=== PATIENT | female | born 1975 | race Caucasian/White ===

== ENCOUNTER 2020-01-27 10:03 | Emergency (ER) | payer BC, SELFPAY ==
--- NOTE | ~2020-01-27 | CT_ITS ---
EXAMINATION: CT abdomen pelvis w con INDICATION: Right-sided abdominal pain TECHNIQUE: Computed tomographic images of the abdomen and pelvis were obtained after the administrati on of 100 cc of Omnipaque 350 intravenous contrast. The dose-length product (DLP) was 756.72 mGy-cm. Automated exposure control and iterative reconstruction technique were employed. COMPARISON: None available FINDINGS: Minimal dependent atelectasis is present in the lung bases. The heart size is normal. There is mild gallbladder distention. The common bile duct measures up to 9 mm, etiology unclear. A 1.2 cm hypoattenuating lesion is seen in the left hepatic lobe, likely cyst or hemangioma. The spleen, panc reas, and right adrenal gland are normal. There is a 1.6 cm mass of the left adrenal gland. The kidne ys are unremarkable. The appendix is normal. No pathologically enlarged abdominal or pelvic lymph nod es are identified. There is no free intraperitoneal gas or evidence of bowel obstruction. IMPRESSION: 1. Mild gallbladder distention and mild enlargement of the common bile duct of unclear etiology. Cons ider right upper quadrant ultrasound. 2. 1.6 cm mass of the left adrenal gland, likely adenoma in the absence of known malignancy. Consider follow-up adrenal CT in 12 months. Reviewed, dictated and finalized at location B. IMPRESSION: 1. Mild gallbladder distention and mild enlargement of the common bile duct of unclear etiology. Consider right upper quadrant ultrasound. 2. 1.6 cm mass of the left adrenal gland, likely adenoma in the absence of know n malignancy. Consider follow-up adrenal CT in 12 months.
--- NOTE | ~2020-01-27 | US_ITS ---
EXAMINATION: US right upper quadrant EXAM DATE: 01/27/2020 12:08 INDICATION: Right upper quadrant pain. TECHNIQUE: Multiple grayscale and Doppler images of the abdomen right upper quadrant were obtained (b y a technologist who performed the scan) and subsequently reviewed. Correlation is made to CT abdomen 01/27/2020. FINDINGS: The pancreatic head and body are normal in appearance. The pancreatic tail is not visualized. The l iver has normal echogenicity and contour. Left liver lobe lesion measuring 1.4 x 1.2 x 1.7 cm which is homogeneously hyperechoic, most likely benign histology. There is no evidence of intrahepatic bili angel duct dilation. Portal venous flow was seen in the hepatopedal, normal direction and has normal D oppler waveform. No right-sided hydronephrosis. Common bile duct measures 6 mm, which is upper limits of normal. The gallbladder wall is normal in th ickness, with moderate amount of distention. No sonographic evidence of pericholecystic fluid. Ther e is cholelithiasis. Technologist performing exam reports patient did not demonstrate sonographic M urphy's sign. Please note that this sign is less reliable in patients who have received pain medicat ion. IMPRESSION: 1. Cholelithiasis. 2. Nonspecific small left liver lobe lesion, most likely benign histology such as adenoma or hemangi franklin. Reviewed, dictated and finalized at location A. IMPRESSION: 1. Cholelithiasis. 2. Nonspecific small left liver lobe lesion, most likely benign histology such as adenoma or hemangioma.
[2020-01-27 10:19] VITALS: BP 139/75; PULSE 76; RESP 17; TEMP 36.8; O2SAT 99
--- NOTE | 2020-01-27 10:20 | ED.ABDPAIN ---
HPI - Abdominal Pain General Chief Complaint: Abdominal Pain Stated Complaint: Abd pain Time Seen by Provider: 01/27/20 10:19 History of Present Illness HPI narrative: Patient presents from her primary care's office for evaluation of right-sided abdominal pain. Is been going on for months. Comes and goes. Currently is a 3 out of 10. Not associated with eating or bowel movements. No fever chills or sweats. No nausea vomiting or diarrhea. No blood in the stool. Previous abdominal surgery includes tubal ligation. Her PCP scheduled an ultrasound of the gallbladder. Patient has not eaten since 730 last night. She smokes cigarettes, does not drink alcohol, does not do drug. Is not employed outside the home. Surgeries include lipoma removal, and tubal ligation. She has not been sick otherwise. MD elicited complaint: abdominal pain Pertinent past history: other (None) Onset (ago): month(s) Pain Consistency: intermittent Location: other (Right sided frontal abdominal pain) Severity: mild Radiation: none Exacerbating factors: nothing Relieving factors: nothing Related Data Home Medications Medication Instructions Recorded Confirmed No Home Medications 01/26/20 01/26/20 Allergies Allergy/AdvReac Type Severity Reaction Status Date / Time sulfamethizole Allergy Unknown Unknown Verified 01/27/20 10:25 Review of Systems Review of Systems: Narrative: CONSTITUTIONAL: Denies fever, chills, or sweats. EYES: Denies visual changes, redness, or discharge. ENT: Denies rhinorrhea, congestion, sore throat, or otalgia. CARDIOVASCULAR: Denies chest pain, palpitations, or edema. RESPIRATORY: Denies cough or dyspnea. GASTROINTESTINAL: She has abdominal pain, but not nausea, vomiting, or diarrhea. GENITOURINARY: Denies dysuria or hematuria. SKIN: Denies rash or itching. MUSCULOSKELETAL: Denies back pain, joint pain, or myalgia. NEUROLOGIC: Denies headache, numbness, or weakness. All systems reviewed & are unremarkable except as noted in HPI and below PMFSH Past Medical History Medical History History of lipoma Surgical History Surgical History History of tubal ligation Status post excision of lipoma Social History Social History Smoking status: Current every day smoker Second hand tobacco smoke exposure: No Alcohol intake: never Gender identity (if verbalized by the patient): Female Exam Narrative: Exam Narrative: GENERAL: Well-appearing, well-nourished, and in no acute distress. HEAD: Normocephalic, atraumatic. EYES: PERRLA and EOMI. ENT: Nares clear, no rhinorrhea or epistaxis. Mucous membranes moist. NECK: Supple. CHEST: Clear to auscultation. No respiratory distress. HEART: Regular rate and rhythm. No murmur heard. Normal peripheral pulses. ABDOMEN: Soft, nontender, nondistended, normal active bowel sounds. EXTREMITIES: Normal range of motion. No edema. SKIN: Warm, dry, no rash. NEURO: No focal deficits. Alert and oriented x3. PSYCH: Normal mood and affect. Course Reevaluation(s) Reevaluation #1: Went in the room to tell the patient about her gallstones. She can follow-up with the GI specialist, and a general surgeon. I encouraged low-fat diet. Date: 01/27/20 Time: 12:49 Vital Signs Vital signs: Vital Signs Temperature 98.2 F 01/27/20 10:19 Pulse Rate 76 01/27/20 10:19 Respiratory Rate 17 01/27/20 10:19 Blood Pressure 139/75 01/27/20 10:19 Pulse Oximetry 99 01/27/20 10:19 Temperature 98.2 F 01/27/20 10:19 Pulse Rate 67 01/27/20 12:08 Respiratory Rate 18 01/27/20 12:08 Blood Pressure 155/101 H 01/27/20 12:08 Pulse Oximetry 100 01/27/20 12:08 MDM - Abdominal Pain Differential Diagnosis Differential diagnosis: Likely other (Duodenitis, colitis, gallstones, kidney stones) Medical Records Attestation: I rev
[2020-01-27 10:37] LABS: Basophils Absolute Auto 0.1 K/mm3 (0.0-0.1); Basophils Percent Auto 0.6 % (0.2-1.2); Eosinophils Absolute Auto 0.1 K/mm3 (0-0.3); Eosinophils Percent Auto 0.9 % (0-4.4); Hematocrit 33.8 % (37.0-47.0); Hemoglobin 10.2 g/dL (12.0-15.0); Immature Granulocyte Absolute 0.03 K/mm3 (0.00-0.031); Immature Granulocyte Percent A 0.3 % (0-0.5); Immature Platelet Fraction Pct 8.1 % (0.9-11.2); Lymphocytes Absolute Auto 1.92 K/mm3 (0.9-3.2); Lymphocytes Percent Auto 19.6 % (18.3-44.2); Mean Corpuscular HGB Conc 30.2 g/dl (32-36); Mean Corpuscular Hemoglobin 21.8 pg (26-34); Mean Corpuscular Volume 72.2 fl (80-100); Mean Platelet Volume 10.9 fl (7.4-10.4); Monocytes Absolute Auto 0.6 K/mm3 (0.1-0.6); Monocytes Percent Auto 5.6 % (2.6-8.5); Neutrophils Absolute Auto 7.2 K/mm3 (1.3-6.7); Platelet Count Result 215 k/mm3 (150-375); Red Blood Count 4.68 M/mm3 (4.2-5.4); Red Cell Distribution Width 18.5 % (11.5-14.5); White Blood Count 9.8 K/mm3 (4.5-10.0)
[2020-01-27 10:46] LABS: Alanine Aminotransferase 21 U/L (4-35); Albumin Level 4.5 g/dL (3.5-5.1); Alkaline Phosphatase 70 U/L (38-126); Anion Gap 14.2 mmol/L (7-16); Aspartate Amino Transferase 27 U/L (14-36); Bilirubin,Total 0.6 mg/dL (0.2-1.3); Blood Urea Nitrogen 10 mg/dL (7-17); Calcium 9.1 mg/dL (8.4-10.2); Carbon Dioxide 22 mmol/L (22-30); Chloride 103 mmol/L (98-107); Estimated CRCL calculation 102 ml/min; Estimated Glomerular Filt Rate > 60; Glucose 130 mg/dL (65-105); Lipase 147 U/L (23-300); Potassium 4.2 mmol/L (3.4-5.0); Sodium 135 mmol/L (137-145)
[2020-01-27 10:57] LABS: Estimated CRCL calculation 90 ml/min; Estimated Glomerular Filt Rate > 60
[2020-01-27 10:59] LABS: Add Urine Microscopic? YES; Appearance Urine Clear (Clear); Bacteria Urine Trace /hpf; Bilirubin Urine Negative (Negative); Blood Urine 1+ (Negative); Color Urine Straw (Yellow); Glucose Urine UA Negative (Negative); Ketones Urine Negative (Negative); Leukocyte Esterase Ur Trace LEU/UL (Negative); Mucus Urine Rare /lpf; Nitrate Urine Negative (Negative); Protein Urine Negative (Negative); RBC Urine 0-2 /hpf (0-2); Specific Grav Ur 1.008 (1.001-1.035); Squamous Epithelial Cell Urine Few /hpf (Few); Urobilinogen Urine Negative mg/dL (<2.0); WBC Urine 0-3 /hpf
--- NOTE | 2020-01-27 11:31 | PC.NURSE ---
Report given to BING Shabazz by this RN. Care assumed by Harika at this time.
--- NOTE | 2020-01-27 11:53 | PC.NURSE ---
Addendum entered by Judith Whitehead RN 01/27/20 11:58: Pt in [place] Original Note: Pt not in room.
[2020-01-27 12:08] VITALS: BP 155/101; PULSE 67; RESP 18; O2SAT 100
[2020-01-27 12:58] VITALS: BP 150/79; PULSE 81; RESP 16; O2SAT 100
== END 2020-01-27 12:59 | disposition home or self-care (01) ==
PROVIDERS: Emergency Provider Emergency Medicine; PCP Internal Medicine
DX: R10.9 Unspecified abdominal pain (principal); K80.20 Calculus of gallbladder without cholecystitis without obstruction; K76.9 Liver disease, unspecified; F17.210 Nicotine dependence, cigarettes, uncomplicated
CPT/HCPCS: 36415; 74177; 76705; 80053; 81001; 81025; 83690; 85025; 85055; 99284; Q9967

== ENCOUNTER 2020-01-29 00:05 | Outpatient (CLI) | payer BC, SELFPAY ==
[2020-01-29 20:43] LABS: SARS-CoV-2 RNA PCR Negative
== END 2020-01-29 00:06 | disposition home or self-care (01) ==
LOC: ANHCOVIDDT 00:06
PROVIDERS: PCP Internal Medicine; Visit Provider Surgery
DX: Z01.812 Encounter for preprocedural laboratory examination (principal); Z11.59 Encounter for screening for other viral diseases
CPT/HCPCS: 87635; C9803; U0003

== ENCOUNTER 2020-02-01 01:10 | Day surgery (SDC) | payer BC, SELFPAY ==
[2020-01-28 09:24] VITALS: BMI 35.7
[2020-02-01] VITALS (7 sets, daily range): BP systolic 104–147; BP diastolic 59–79; PULSE 65–70; RESP 13–16; TEMP 36.3–36.8; O2SAT 90–98; BMI 35.1
--- NOTE | 2020-02-01 06:52 | WPDANESEPPF ---
Anes - Initial Pre Proc Eval Procedure: Operation Date: 02/01/20 07:30 Proposed Procedures p Laparoscopic Cholecystectomy, Possible Intra Operative Cholangiograms, Possible Open - Dedrick Valdez MD Date/Time: 02/01/20 06:52 Surgeon: Dedrick Valdez MD Pre Op Diagnosis: chronic cholecystitis with cholelithiasis Patient Data Age: 44 Gender: F Height: 5 ft 5 in Weight: 97.52 kg Allergies Allergy/AdvReac Type Severity Reaction Status Date / Time sulfamethizole Allergy Unknown swelling, Verified 02/01/20 06:49 hives Home Medications Medication Instructions Recorded Confirmed Type hydrocodone 5 mg-acetaminophen 325 1 tablet PO Q6H PRN #10 tablet 01/28/20 02/01/20 Rx mg tablet Patient hx anesthesia problems: none Family hx anesthesia problems: none PMFSH Family History Family History Father Hypertension High cholesterol Mother High cholesterol Hypertension Social History Social History Smoking packs per day: 1 Smoking cigarettes per day: 20.0 Years smoked: 26 Smoking pack-years: 26.00 Smoking status: Current every day smoker Tobacco type: cigarettes Second hand tobacco smoke exposure: No Alcohol intake: never Substance use: never Gender identity (if verbalized by the patient): Female Spiritual care concerns: No Anes - Eval Final PreProcedure Day of Procedure 02/01/20 06:52 Patient weight: obese Heart: regular rate and rhythm Lungs: clear to auscultation Airway: Mallampati scale class II and other (edentulous) Neurological: alert and oriented Last oral intake: >/= 8 hours ASA classification: II Emergent: no Anesthetic plan: proceed Anesthesia type and monitoring: general ETT and standard monitoring Informed Consent: The patient's anesthetic plan and its attendant risks and benefits were discussed with the patient/family/POA. Questions were solicited and answers provided to the satisfaction of the patient/family/POA.
[2020-02-01] MEDS: LACTATED RINGERS 1,000 ML 30 ML IV CONT ×2 (07:00→09:40)
--- NOTE | 2020-02-01 07:22 | WPDHPUPDATE1 ---
History and Physical Update Update Date/Time: 02/01/20 07:22 History and Physical has been reviewed, including an updated exam of the patient. There are NO changes in the patient's condition. Risks, benefits, and alternatives have been discussed and questions answered. Patient agrees to proceed with procedure.
[2020-02-01] MEDS: ceFAZolin 2 GM/D5W 50 ML 2 GM/50 ML BAG IVPB (07:27)
[2020-02-01] MEDS: KETOROLAC 15 MG/ML VIAL (*BKC) IV PUSH (07:30)
[2020-02-01 07:39] LABS: Alanine Aminotransferase 16 U/L (4-35); Albumin Level 4.1 g/dL (3.5-5.1); Alkaline Phosphatase 64 U/L (38-126); Amylase 67 U/L (30-110); Aspartate Amino Transferase 24 U/L (14-36); Bilirubin,Total 0.4 mg/dL (0.2-1.3); Lipase 103 U/L (23-300)
[2020-02-01] MEDS: BUPIVACAINE/EPINEPHRINE 0.5% 10 ML VIAL 30 ML INFILTRATE (07:55)
--- NOTE | 2020-02-01 09:47 | P.OP_ITS ---
Procedure Note - Detailed Date of procedure: 02/01/20 Pre-op diagnosis: chronic cholecystitis with cholelithiasis Chronic Cholecystitis with Cholelithiasis Post-op diagnosis: same Procedure performed: Laparoscopic Cholecystectomy Description of procedure: Patient was seen preoperatively in the holding area and risks, benefits and alternatives confirmed. Patient was taken to the operating room and general anesthesia was induced. A time out was then preformed with the surgery team confirming patient and site of surgery. The abdomen was prepped and draped in the usual sterile fashion. Incision was made just below the umbilicus with an 11 blade knife. I placed 2 stay sutures of O- Vicryl on either side of the mid- line fascia beneath the umbilicus and was then able to slide in the Denis cannula through the fascial defect into the peritoneum. First under low flow and then under high flow the abdomen was insufflated with carbon dioxide never exceeding a pressure of 14. Three 5 mm trocars were then introduced under direct vision. The following trocars were introduced under direct vision: a 5 mm in the epigastrium and two 5 mm trocars along the right costal margin laterally in the subcostal area. There was significant omental adhesions to the underside of the gallbladder. These were taken down with blunt and sharp dissection using some Bovie cautery for hemostasis. We were able to dissect this completely away from the neck of the gallbladder. I then carefully used the L-shaped cautery and the [place] dissector to dissect out the triangle of Calot. I then was able to dissect out both the cystic duct and cystic artery and identify a window of safety. The gall bladder was grasped and the cystic duct and artery were dissected free and clipped with an 5 mm endo-clip chief engineer drilling and recovery. The cystic duct and artery were clipped with use of 2 clips on the patient's side 1 on the gallbladder side utilizing a 5 mm endoclip- chief engineer drilling and recovery. The cystic duct was then transected. The cystic artery was also transected at this point. The gall bladder was removed using electrocautery and then removed from the abdomen using a large 10 mm grasper via the umbilical incision. there were several medium-size and 1 large gallstone palpable within the gallbladder upon removal. It should be mentioned that there did appear to be on the surface of the midportion of the liver (probably on the liver in the left lobe) a surface purplish discolored lesion most likely hemangioma. This was mentioned and her CT scan at the time of her ER visit. The trocars were removed visualizing hemostasis and the remaining gas evacuated. The large trocar site at the umbilicus was closed with use of the 2 stay sutures of 0 Vicryl mentioned above and also a figure of 8 O-Vicryl suture. The 2 stay sutures mentioned above on either side of the fascia were also tied together to help approximate this midline fascia. Further local anesthetic was placed into each incision for postop pain control. The skin incisions were closed with subcuticular suture of 4-0 Monocryl. Surgical glue then was applied to all the incisions. Patient tolerated the procedure well was taken to the recovery room in good condition. Anesthesia: DENICE Surgeon: Dedrick Valdez MD Assessment Clinician: Verona SMART, OR first aid instructor Estimated blood loss (mL): 30 Drains: No Packing: No Pathology: yes (Gallbladder) Complications: No immediate complications Condition: stable Disposition: PACU
== END 2020-02-01 10:52 | disposition home or self-care (01) ==
PROVIDERS: PCP Internal Medicine; Visit Provider Surgery
PROC: 0FT44ZZ Resection of Gallbladder, Percutaneous Endoscopic Approach (ICD-10-PCS; CPT 47562; principal; 2020-02-01 07:30)
DX: K80.10 Calculus of gallbladder with chronic cholecystitis without obstruction (principal); F17.210 Nicotine dependence, cigarettes, uncomplicated; E66.9 Obesity, unspecified; Z68.35 Body mass index [BMI] 35.0-35.9, adult
CPT/HCPCS: 47562; 36415; 80076; 82150; 83690; 88304; J0690; J1100; J1885; J2250; J2405; J2704; J2710; J7120

== ENCOUNTER 2020-02-04 11:55 | Outpatient (CLI) | payer BC, SELFPAY ==
--- NOTE | ~2020-02-04 | US_ITS ---
EXAMINATION: US venous doppler [facility] DATE: 02/04/2020 12:38 INDICATION: Chest pain TECHNIQUE: He scale images without and with compression and Doppler images of the bilateral lower e xtremity veins were obtained. COMPARISON: None FINDINGS: The right common femoral vein, profunda femoral vein, femoral vein, popliteal vein, peroneal trunk, p osterior tibial veins, and greater saphenous vein are patent. The left common femoral vein, profunda femoral vein, femoral vein, popliteal vein, peroneal trunk, po sterior tibial veins, and greater saphenous vein are patent. IMPRESSION: 1. Patent bilateral lower extremity veins. No evidence of deep venous thrombosis. Reviewed, dictated and finalized at location A. IMPRESSION: 1. Patent bilateral lower extremity veins. No evidence of deep venous thrombosi s.
--- NOTE | ~2020-02-04 | XR_ITS ---
EXAMINATION: XR chest 2V DATE: 02/04/2020 12:15 INDICATION: Other abnormalities of breathing, upper back pain with inspiration TECHNIQUE: PA and lateral views of the chest are obtained. COMPARISON: 02/13/2019 FINDINGS: There is mild atelectasis of the lingula. There is no pleural effusion or pneumothorax. The cardiomediastinal silhouette is normal. There is mild thoracic spondylosis. IMPRESSION: 1. Mild atelectasis of the lingula. Reviewed, dictated and finalized at location A.
== END 2020-02-04 11:56 | disposition home or self-care (01) ==
LOC: ANHIMG 11:56
PROVIDERS: PCP Internal Medicine; Visit Provider Surgery
DX: R06.89 Other abnormalities of breathing (principal); M79.89 Other specified soft tissue disorders; J98.11 Atelectasis
CPT/HCPCS: 71046; 93970

== ENCOUNTER 2020-02-16 08:15 | Outpatient (CLI) | payer BC, SELFPAY ==
--- NOTE | 2020-02-16 08:46 | EST_ITS ---
Patient Info Name: Cecilia Herrera Age: 44 years : 1975 Gender: Female Ht: 65 in Wt: 210 lbs BSA: 2.13 m2 HR: 65 bpm BP: 138 / 73 mmHg Heart Rhythm: Sinus Arrhythmia Exam Date: 02/16/2020 9:55 AM Exam Location: [facility] Patient Status: Outpatient Admit Date: 02/16/2020 Staff Ordering Physician: Hui Urbina Front Desk Assistant: Aniya Goldstein RDCS Attending Provider: IRVING STRAUSS DO Referring Physician: Carlitos PARRA; Exercise Technologist: Maggie Sosa RDCS Exercise Physician: Irving Strauss DO Exam Type: CA stress echo Study Info Indications R00.0 - Tachycardia, unspecified Treadmill exercise stress echocardiogram is performed. Summary 1. 1. Negative Khai exercise stress test for ischemic ST changes by ECG criteria. 2. 2. Mild reduced functional capacity, achieving 7 METs of workload. 3. 3. Appropriate HR response to exercise. 4. 4. Appropriate HR recovery at 1 minute post exercise. 5. 5. Supraventricular beats at peak exercise. 6. 6. Hypertensive response to exercise. 7. 7. Negative stress echocardiogram for ischemia by wall motion analysis. 8. 8. Patient informed of the above results. Stress Echo Findings Left Ventricle Appropriate increase in LV endocardial thickening with systole. Appropriate augmentation of contractillity with systole. No wall motion abnormality. Left Ventricle Normal LV systolic function, no wall motion abnormality. Protocol: Khai Stress ECG Details Stage: REST Duration (min): 5 min : 18 sec Speed (mph): 0.0 Grade (%): 0 HR (bpm): 65 SBP (mmHg): 138 DBP (mmHg): 73 METS: --- Stage: REST Duration (min): 17 min : 54 sec Speed (mph): 0.0 Grade (%): 0 HR (bpm): 73 SBP (mmHg): 138 DBP (mmHg): 73 METS: --- Stage: STAGE 1 Duration (min): 1 min : 0 sec Speed (mph): 1.7 Grade (%): 10 HR (bpm): 100 SBP (mmHg): 138 DBP (mmHg): 73 METS: --- Stage: STAGE 1 Duration (min): 2 min : 0 sec Speed (mph): 1.7 Grade (%): 10 HR (bpm): 107 SBP (mmHg): 138 DBP (mmHg): 73 METS: --- Stage: STAGE 1 Duration (min): 3 min : 0 sec Speed (mph): 1.7 Grade (%): 10 HR (bpm): 116 SBP (mmHg): 215 DBP (mmHg): 79 METS: --- Stage: STAGE 2 Duration (min): 1 min : 0 sec Speed (mph): 2.5 Grade (%): 12 HR (bpm): 161 SBP (mmHg): 206 DBP (mmHg): 69 METS: --- Stage: STAGE 2 Duration (min): 2 min : 0 sec Speed (mph): 2.5 Grade (%): 12 HR (bpm): 169 SBP (mmHg): 213 DBP (mmHg): 70 METS: --- Stage: STAGE 2 Duration (min): 2 min : 1 sec Speed (mph): 0.0 Grade (%): 0 HR (bpm): 162 SBP (mmHg): 213 DBP (mmHg): 70 METS: --- Stage: RECOVERY Duration (min): 0 min : 58 sec Speed (mph): 0.0 Grade (%): 0 HR (bpm): 155 SBP (mmHg): 213 DBP (mmHg): 70 METS: --- Stage: RECOVERY Duration (min): 1 min : 58 sec Speed (mph): 0.0 Grade (%): 0 HR (bpm): 94 SBP (mm
== END 2020-02-16 08:16 | disposition home or self-care (01) ==
PROVIDERS: PCP Internal Medicine; Visit Provider Nurse Practitioner
DX: R00.0 Tachycardia, unspecified (principal); I49.3 Ventricular premature depolarization; I49.1 Atrial premature depolarization
CPT/HCPCS: 93351

== ENCOUNTER 2020-12-29 15:47 | Emergency (ER) | payer BC, SELFPAY ==
--- NOTE | ~2020-12-29 | XR_ITS ---
EXAMINATION: XR chest 2V DATE: 12/29/2020 16:10 INDICATION: Midsternal chest pain. Shortness of breath. TECHNIQUE: Frontal and lateral views of the chest were obtained. COMPARISON: Chest 2 views 02/04/2020, CT abdomen and pelvis 01/27/2020 FINDINGS: The chest demonstrates clear lungs without pneumonia, pleural effusion, or pneumothorax. Th e heart size is normal. Surgical clips in the right upper quadrant are likely from cholecystectomy. IMPRESSION: 1. No acute cardiopulmonary disease. Reviewed, dictated and finalized at location A.
--- NOTE | 2020-12-29 15:50 | ECG_ITS ---
Measurements Intervals [place] Rate: 84 P: 27 AR: 120 QRS: 8 QRSD: 93 T: 29 QT: 373 QTc: 443 Interpretive Statements SINUS RHYTHM BASELINE ARTIFACT- II, III, AVF, V1, V3-V6 NORMAL ECG Electronically Signed On 12-29-2020 19:04:22 CDT by Irving Ynacey D.O.
[2020-12-29 15:52] VITALS: BP 155/98; PULSE 91; RESP 18; TEMP 36.6; O2SAT 100
[2020-12-29] MEDS: ASPIRIN 81 MG CHEWABLE TABLET 324 MG PO (15:58)
[2020-12-29 15:59] VITALS: BP 152/82; PULSE 90; RESP 16; O2SAT 98
[2020-12-29 16:14] LABS: Basophils Absolute Auto 0.1 K/mm3 (0.0-0.1); Basophils Percent Auto 0.3 % (0.2-1.2); Eosinophils Absolute Auto 0.1 K/mm3 (0-0.3); Eosinophils Percent Auto 0.8 % (0-4.4); Hemoglobin 9.5 g/dL (12.0-15.0); Immature Granulocyte Absolute 0.06 K/mm3 (0.00-0.031); Immature Granulocyte Percent A 0.4 % (0-0.5); Lymphocytes Absolute Auto 2.14 K/mm3 (0.9-3.2); Lymphocytes Percent Auto 13.8 % (18.3-44.2); Mean Corpuscular HGB Conc 29.7 g/dl (32-36); Mean Corpuscular Hemoglobin 20.7 pg (26-34); Mean Corpuscular Volume 69.9 fl (80-100); Mean Platelet Volume 10.7 fl (7.4-10.4); Monocytes Absolute Auto 0.9 K/mm3 (0.1-0.6); Neutrophils Absolute Auto 12.2 K/mm3 (1.3-6.7); Neutrophils Percent Auto 78.7 % (45.5-73.1); Platelet Count Result 246 k/mm3 (150-375); Red Blood Count 4.58 M/mm3 (4.2-5.4); Red Cell Distribution Width 19.5 % (11.5-14.5); White Blood Count 15.5 K/mm3 (4.5-10.0)
--- NOTE | 2020-12-29 16:19 | ED.GENADULT ---
HPI - General Adult General Chief complaint: Chest Pain Stated complaint: pulling in chest Time Seen by Provider: 12/29/20 15:53 Source: patient Mode of arrival: ambulatory Limitations: no limitations History of Present Illness HPI narrative: Patient states that she had upper chest and right arm and neck pain that started last evening. She was able to sleep through the night and then today when she was walking into her kitchen she had tearing pain in her upper chest. She called her doctor to see if they could be if she could be seen and was recommended that she come to the emergency room. When she arrived here the pain had all that subsided, and now is only present when she takes a deep breath. She has no history of hypertension or cardiac disease. She is a 1 pack a day smoker. Onset (ago): hour(s) Radiation: back and neck (on right) Pain Consistency: now resolved Relieving factors: none Exacerbating factors: none Associated symptoms: denies other symptoms Treatments prior to arrival: none Related Data Home Medications Medication Instructions Recorded Confirmed ferrous sulfate 325 mg (65 mg 325 mg PO DAILY 02/26/20 02/26/20 iron) tablet Allergies Allergy/AdvReac Type Severity Reaction Status Date / Time sulfamethizole Allergy Unknown swelling, Verified 02/26/20 11:02 hives Review of Systems Review of Systems: All systems reviewed & are unremarkable except as noted in HPI and below [facility] Past Medical History Medical History (Updated 12/29/20 @ 17:30 by Romelia Baca PA-C) History of lipoma Surgical History Surgical History History of laparoscopic cholecystectomy 02/01/20 History of tubal ligation Status post excision of lipoma Family History Family History Father Hypertension High cholesterol Mother High cholesterol Hypertension Social History Social History Smoking packs per day: 1 Smoking cigarettes per day: 20.0 Years smoked: 26 Smoking pack-years: 26.00 Smoking status: Current every day smoker Tobacco type: cigarettes Second hand tobacco smoke exposure: No Alcohol intake: never Substance use: never Gender identity (if verbalized by the patient): Female Spiritual care concerns: No Exam Const: General: healthy appearing, no acute distress and alert HENMT: Head: normal to inspection Eyes: Conjunctivae: conjunctivae normal Pupils: Equal, round and reactive pupils present EOM: EOMs intact bilaterally Neck: Neck: normal visual inspection Other: no carotid bruit Resp: Effort & Inspection: normal respiratory effort Auscultation: rales bilateral at the base and in the mid lung garcia Cardio: Rate: regular rate Rhythm: regular rhythm Peripheral pulses: radial pulses present (equal 2+) GI: GI Palp: Yes Soft to palpation Skin: General skin exam: normal color (and temperature) Neuro: General: patient oriented x3 and moves all extremities Extrem: General: normal to inspection and no clubbing, cyanosis or edema Psych: Affect: normal affect Attitude: cooperative Course Course Emergency Course: During interview patient did mention that when she lays down to sleep she occasionally hears herself breathing, like wheezing. Patient states she feels much better after her albuterol nebulizer treatment. She still has rales in the bases, but overall improved aeration. Will have respiratory therapy instruct in use of an MDI with spacer. Plan explained to patient. Vital Signs Vital signs: Vital Signs Temperature 36.6 C 12/29/20 15:52 Pulse Rate 91 12/29/20 15:52 Respiratory Rate 18 12/29/20 15:52 Blood Pressure 155/98 H 12/29/20 15:52 Pulse Oximetry 100 12/29/20 15:52 Temperature 36.6 C 12/29/20 15:52 Pulse Rate 79 12/29/20 17:05 Respiratory Rate 24 H 12/29
[2020-12-29 16:24] LABS: INR 0.9; Partial Thromboplastin Time 29.2 SECONDS (22.3-36.8); Prothrombin Time 12.4 Seconds (11.1-14.7)
[2020-12-29 16:25] LABS: Anion Gap 10 mmol/L (8-16); Blood Urea Nitrogen 9 mg/dL (7-17); Calcium 9.5 mg/dL (8.4-10.2); Carbon Dioxide 25 mmol/L (22-30); Chloride 104 mmol/L (98-107); Estimated CRCL calculation 73 ml/min; Estimated Glomerular Filt Rate > 60; Glucose 107 mg/dL (65-105); Sodium 139 mmol/L (137-145)
[2020-12-29 16:36] LABS: Troponin I < 0.012 ng/mL (0.000-0.034)
[2020-12-29] MEDS: ALBUTEROL SULFATE NEB 2.5 MG/0.5 ML INH INHALATION (16:58)
[2020-12-29 17:00] VITALS: PULSE 81; RESP 20
[2020-12-29 17:05] VITALS: PULSE 79; RESP 24
[2020-12-29 17:40] VITALS: BP 142/75; PULSE 84; RESP 18; O2SAT 100
== END 2020-12-29 17:42 | disposition home or self-care (01) ==
PROVIDERS: Emergency Medicine; Emergency Provider Emergency Medicine; PCP Internal Medicine
DX: R07.89 Other chest pain (principal); F17.210 Nicotine dependence, cigarettes, uncomplicated
CPT/HCPCS: 36415; 71046; 80048; 84484; 85025; 85610; 85730; 93005; 94640; 99284; A9270

== ENCOUNTER 2021-01-08 14:35 | Emergency (ER) | payer BC, SELFPAY ==
[2021-01-08 14:44] VITALS: BP 151/77; PULSE 66; RESP 16; TEMP 36.3; O2SAT 100
--- NOTE | 2021-01-08 14:53 | ED.GENADULT ---
HPI - General Adult General Chief complaint: Skin/Abscess/Foreign Body Stated complaint: Infection on nose Source: patient Mode of arrival: ambulatory Limitations: no limitations History of Present Illness HPI narrative: Patient presents for evaluation of pain and erythema to the soft tissues of her nose for last 5 days. 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 No fever, chills, nausea, vomiting. She is not diabetic. She no longer smokes. She has not tried any therapies to assist with her symptoms. In the past she was given Bactroban to apply intranasally, which she tolerated well. Related Data Home Medications Medication Instructions Recorded Confirmed ferrous sulfate [FeroSul] 325 mg PO DAILY 01/08/21 01/08/21 Allergies Allergy/AdvReac Type Severity Reaction Status Date / Time sulfamethizole Allergy Unknown swelling, Verified 01/08/21 14:53 hives Review of Systems Review of Systems: Narrative: CONSTITUTIONAL: Denies fever, chills, or sweats. EYES: Denies visual changes, redness, or discharge. ENT: Pain to the soft tissues of the nose. Denies rhinorrhea, congestion, sore throat, or otalgia. CARDIOVASCULAR: Denies chest pain, palpitations, or edema. RESPIRATORY: Denies cough or dyspnea. GASTROINTESTINAL: Denies abdominal pain, nausea, vomiting, or diarrhea. GENITOURINARY: Denies dysuria or hematuria. SKIN: Reports erythema to the soft tissues of the nose. Denies rash or itching. MUSCULOSKELETAL: Denies back pain, joint pain, or myalgia. NEUROLOGIC: Denies headache, numbness, dizziness, or weakness. PSYCHIATRIC: Denies anxiety or depression. [facility] [place] Past Medical History Medical History History of lipoma History of MRSA infection Surgical History Surgical History History of laparoscopic cholecystectomy 02/01/20 History of tubal ligation Status post excision of lipoma Family History Family History Father Hypertension High cholesterol Mother High cholesterol Hypertension Social History Social History (Updated 01/08/21 @ 14:56 by Caleb Paulson, [facility], ) Smoking packs per day: 1 Smoking cigarettes per day: 20.0 Years smoked: 26 Smoking pack-years: 26.00 Smoking status: Former smoker Tobacco type: cigarettes Second hand tobacco smoke exposure: No Smoking end date: 12/29/20 Alcohol intake: never Substance use: never Gender identity (if verbalized by the patient): Female Spiritual care concerns: No Exam Narrative: Exam Narrative: GENERAL: Well-appearing, well-nourished, and in no acute distress. HEAD: Normocephalic, atraumatic. EYES: PERRLA and EOMI. ENT: There is mild erythema and trace swelling to the soft tissue of the nose, between both nares. Nares clear, no rhinorrhea or epistaxis. Mucous membranes moist. Oropharynx without tonsillar hypertrophy exudate or other lesions. Bilateral TMs pearly bronson nonbulging NECK: Supple. No adenopathy or masses. No carotid bruits or JVD CHEST: Clear to auscultation. No respiratory distress. No wheezes rales or rhonchi HEART: Regular rate and rhythm. No murmur heard. Normal peripheral pulses. ABDOMEN: Soft, nontender, nondistended, normal active bowel sounds. EXTREMITIES: Normal range of motion. No edema. SKIN: Mild erythema to the soft tissue of the nose between both naris with what appears to be a developing pustule with associated induration. Warm, dry, no rash. NEURO: No focal deficits. Alert and oriented x3. PSYCH: Normal mood and affect. Course Course Emergency Course: This is a 45-year-old female who presents with complaints of pain, swelling, erythema the soft tissue of the nose between both nares. She appears to have a form
== END 2021-01-08 15:07 | disposition home or self-care (01) ==
PROVIDERS: Emergency Provider Nurse Practitioner; PCP Internal Medicine
DX: J34.0 Abscess, furuncle and carbuncle of nose (principal); Z87.891 Personal history of nicotine dependence; Z86.14 Personal history of Methicillin resistant Staphylococcus aureus infection
CPT/HCPCS: 99213; G0463

== ENCOUNTER 2021-01-21 12:05 | Emergency (ER) | payer BC, SELFPAY ==
[2021-01-21 12:12] VITALS: BP 151/81; PULSE 100; RESP 18; TEMP 36.3; O2SAT 98
--- NOTE | 2021-01-21 12:16 | ED.GENADULT ---
HPI - General Adult General Chief complaint: Allergic Reaction Stated complaint: Allergic Reaction Source: patient Mode of arrival: ambulatory Limitations: no limitations History of Present Illness HPI narrative: Patient presents for evaluation of a burning rash to her face, neck, bilateral upper extremities that started just prior to arrival. She indicates she was pulling some weeds out of a tree when she had acute onset burning sensation in her face. She denies any difficulty breathing or swallowing. She has not tried any therapies to assist with her symptoms. I saw her here recently for cellulitis of the nose. She states her symptoms are improving on oral abx. 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 Related Data Home Medications Medication Instructions Recorded Confirmed ferrous sulfate [FeroSul] 325 mg PO DAILY 01/08/21 01/21/21 Allergies Allergy/AdvReac Type Severity Reaction Status Date / Time sulfamethizole Allergy Unknown swelling, Verified 01/21/21 12:10 hives Review of Systems Review of Systems: Narrative: CONSTITUTIONAL: Denies fever, chills, or sweats. EYES: Denies visual changes, redness, or discharge. ENT: Reports difficulty swallowing. Denies rhinorrhea, congestion, sore throat, or otalgia. CARDIOVASCULAR: Denies chest pain, palpitations, or edema. RESPIRATORY: Denies cough or dyspnea. GASTROINTESTINAL: Denies abdominal pain, nausea, vomiting, or diarrhea. GENITOURINARY: Denies dysuria or hematuria. SKIN:Reports rash with associated burning sensation to face, neck and BUE MUSCULOSKELETAL: Denies back pain, joint pain, or myalgia. NEUROLOGIC: Denies headache, numbness, dizziness, or weakness. PSYCHIATRIC: Denies anxiety or depression. [facility], [facility] Past Medical History Medical History History of lipoma History of MRSA infection Surgical History Surgical History History of laparoscopic cholecystectomy 02/01/20 History of tubal ligation Status post excision of lipoma Family History Family History Father Hypertension High cholesterol Mother High cholesterol Hypertension Social History Social History Smoking packs per day: 1 Smoking cigarettes per day: 20.0 Years smoked: 26 Smoking pack-years: 26.00 Smoking status: Former smoker Tobacco type: cigarettes Second hand tobacco smoke exposure: No Smoking end date: 12/29/20 Alcohol intake: never Substance use: never Gender identity (if verbalized by the patient): Female Spiritual care concerns: No Exam Narrative: Exam Narrative: GENERAL: Well-appearing, well-nourished, and in no acute distress. HEAD: Normocephalic, atraumatic. EYES: PERRLA and EOMI. ENT: Nares clear, no rhinorrhea or epistaxis. Mucous membranes moist. Hot potato voice. Oropharynx without tonsillar hypertrophy exudate or other lesions. Bilateral TMs pearly bronson nonbulging NECK: Supple. No adenopathy or masses. No carotid bruits or JVD CHEST: Clear to auscultation. No respiratory distress. No wheezes rales or rhonchi HEART: Regular rate and rhythm. No murmur heard. Normal peripheral pulses. ABDOMEN: Soft, nontender, nondistended, normal active bowel sounds. EXTREMITIES: Normal range of motion. No edema. SKIN: Erythematous rash in patchy distribution to face, anterior neck and BUE. NEURO: No focal deficits. Alert and oriented x3. PSYCH:Anxious Course Course Emergency Course: This is a 45-year-old female who presented with a burning sensation to her face chest and bilateral upper extremities after some type of allergen exposure. She initially denied any presence of difficulty breathing or swallowing. She then developed hot potato vo
[2021-01-21] MEDS: EPINEPHrine HCL INJ 1 MG/ML AMPUL 0.3 MG SUB-Q (12:24)
[2021-01-21] MEDS: methylPREDNISolone ACETATE 80 MG/ML VIAL 125 MG IM (12:29)
[2021-01-21] MEDS: diphenhydrAMINE HCl INJ 50 MG/ML VIAL IM (12:34)
[2021-01-21 13:40] VITALS: BP 138/78; PULSE 97; RESP 18; TEMP 36.6; O2SAT 99
== END 2021-01-21 13:40 | disposition home or self-care (01) ==
PROVIDERS: Emergency Provider Nurse Practitioner; PCP Internal Medicine
DX: R21 Rash and other nonspecific skin eruption (principal); T78.40XA Allergy, unspecified, initial encounter; X58.XXXA Exposure to other specified factors, initial encounter; Z87.891 Personal history of nicotine dependence; Z86.14 Personal history of Methicillin resistant Staphylococcus aureus infection
CPT/HCPCS: 99213; A9270; G0463; J0171; J1040; J1200; J2930

== ENCOUNTER 2022-03-31 22:03 | Emergency (ER) | payer BC, SELFPAY ==
--- NOTE | ~2022-03-31 | XR_ITS ---
EXAMINATION: XR chest 2V DATE: 03/31/2022 22:41 INDICATION: Right-sided chest pain with inspiration TECHNIQUE: PA and lateral views of the chest were obtained. COMPARISON: Chest radiograph dated 12/29/2020 FINDINGS: The lungs remain clear with no focal airspace opacities, pulmonary edema, pleural effusion or pneumot horax. The cardiomediastinal silhouette is normal. Post cystectomy clips in right upper quadrant. Mil d thoracic spondylosis. IMPRESSION: 1. No acute cardiopulmonary disease. Reviewed, dictated and finalized at location A.
--- NOTE | 2022-03-31 22:13 | ECG_ITS ---
Measurements Intervals [place] Rate: 79 P: 42 CA: 153 QRS: 8 QRSD: 87 T: 22 QT: 390 QTc: 449 Interpretive Statements SINUS RHYTHM COMPARED TO ECG 12/29/2020 15:56:10 NO SIGNIFICANT CHANGES Electronically Signed On 04-01-2022 17:44:12 CDT by Katina Ardon M.D.
[2022-03-31 22:25] VITALS: BP 177/82; PULSE 82; RESP 17; TEMP 36.6; O2SAT 99
[2022-03-31 22:29] LABS: Basophils Percent Auto 0.4 % (0.2-1.2); Eosinophils Absolute Auto 0.2 K/mm3 (0-0.3); Eosinophils Percent Auto 1.5 % (0-4.4); Immature Granulocyte Absolute 0.03 K/mm3 (0.00-0.031); Immature Granulocyte Percent A 0.3 % (0-0.5); Lymphocytes Absolute Auto 2.35 K/mm3 (0.9-3.2); Lymphocytes Percent Auto 22.6 % (18.3-44.2); Mean Corpuscular Hemoglobin 21.4 pg (26-34); Mean Corpuscular Volume 73.8 fl (80-100); Mean Platelet Volume 10.6 fl (7.4-10.4); Monocytes Absolute Auto 0.5 K/mm3 (0.1-0.6); Monocytes Percent Auto 5.2 % (2.6-8.5); Neutrophils Absolute Auto 7.3 K/mm3 (1.3-6.7); Platelet Count Result 245 k/mm3 (150-375); Red Cell Distribution Width 18.9 % (11.5-14.5); White Blood Count 10.4 K/mm3 (4.5-10.0)
[2022-03-31 22:40] LABS: Alanine Aminotransferase 16 U/L (6-35); Albumin Level 4.5 g/dL (3.5-5.1); Alkaline Phosphatase 64 U/L (38-126); Anion Gap 10 mmol/L (8-16); Aspartate Amino Transferase 21 U/L (14-36); Bilirubin,Total 0.4 mg/dL (0.2-1.3); Blood Urea Nitrogen 11 mg/dL (7-17); Carbon Dioxide 26 mmol/L (22-30); Chloride 101 mmol/L (98-107); Estimated Glomerular Filt Rate > 60; Glucose 129 mg/dL (65-110); Lipase 108 U/L (23-300); Potassium 3.8 mmol/L (3.4-5.0); Sodium 137 mmol/L (137-145)
[2022-03-31 22:41] LABS: Partial Thromboplastin Time 31.5 SECONDS (22.3-36.8)
[2022-03-31 22:45] LABS: Anisocytosis 1+ (NORMAL); Hypochromasia 1+ (NORMAL); Platelet Estimate Adequate (Adequate)
[2022-03-31 22:46] LABS: Stomatocytes 1+ (NORMAL)
[2022-03-31 22:52] LABS: Troponin I < 0.012 ng/mL (0.000-0.034)
--- NOTE | 2022-03-31 23:35 | PC.NURSE ---
Patient stated she wants to go home. Patient states she will come back if she feels she needs to. Patient educated on risks of leaving before being seen by provider. Patient stated I'm okay, I will come back if I need to. Patient left ED with a steady gait at 2331.
== END 2022-03-31 23:31 | disposition left against medical advice (07) ==
LOC: ANHED 23:39
PROVIDERS: Emergency Provider Emergency Medicine; PCP Internal Medicine
DX: R07.9 Chest pain, unspecified (principal)
CPT/HCPCS: 36415; 71046; 80053; 83690; 84484; 85025; 85610; 85730; 93005; 99199

== ENCOUNTER 2023-03-13 10:56 | Emergency (ER) | payer BC, SELFPAY ==
--- NOTE | ~2023-03-13 | XR_ITS ---
EXAMINATION: XR chest 2V 03/13/2023 11:35 INDICATION: Chest tightness PROCEDURE: 2 view chest COMPARISON: Comparison to multiple prior studies sequentially, with oldest reviewed study dated 02/13 . FINDINGS: The lungs are clear. The cardiomediastinal silhouette is within normal limits. There are no pleural effusions. There is no pneumothorax suspected. IMPRESSION: 1: NO ACUTE CARDIOPULMONARY DISEASE. Reviewed, dictated and finalized at location B.
--- NOTE | ~2023-03-13 | CT_ITS ---
EXAMINATION: CT brain wo con DATE: 03/13/2023 12:35 INDICATION: Dizziness. TECHNIQUE: Computed tomography (CT) of the head was performed without intravenous contrast. The mA wa s adjusted according to patient size. Iterative reconstruction technique was employed. The dose-lengt h product was 605.33 mGy-cm. COMPARISON: Head CT 02/07/2019 FINDINGS: There is no intracranial hemorrhage, acute infarction, or abnormal intracranial mass lesion . The ventricles are normal in size. The mastoid air cells are normal. There is mild mucosal thickeni ng in the paranasal sinuses. IMPRESSION: 1. Normal brain. Reviewed, dictated and finalized at location A. IMPRESSION: 1. Normal brain.
--- NOTE | 2023-03-13 10:58 | ECG_ITS ---
Measurements Intervals [place] Rate: 71 P: 26 OR: 160 QRS: 4 QRSD: 102 T: 7 QT: 383 QTc: 418 Interpretive Statements SINUS RHYTHM DELAYED PRECORDIAL R/S TRANSITION BORDERLINE T WAVE ABNORMALITY- ANT/INF LEADS BASELINE ARTIFACT- I, II, AVR, V1 BORDERLINE ECG COMPARED TO ECG 03/31/2022 22:17:39 NO SIGNIFICANT CHANGES Electronically Signed On 03-13-2023 11:20:16 CDT by Irving Yancey D.O.
[2023-03-13 11:00] VITALS: BP 148/76; PULSE 71; RESP 18; TEMP 36.4; O2SAT 96
[2023-03-13 12:13] VITALS: BP 155/84; PULSE 68; RESP 18; O2SAT 100
[2023-03-13 12:19] LABS: Glucose Point of Care 168 mg/dl (65-105)
--- NOTE | 2023-03-13 12:24 | ED.GENADULT ---
HPI - General Adult General Chief complaint: Chest Pain Stated complaint: chest tight, dizzy Time Seen by Provider: 03/13/23 12:19 History of Present Illness HPI narrative: 48-year-old female history of hypertension, hypothyroidism, diabetes presents to the emergency room for sudden onset of dizziness. Patient states that she was sitting down watching TV when she became dizzy. Denied any nausea or vomiting. Denied any light sensitivity. Related Data Allergies Allergy/AdvReac Type Severity Reaction Status Date / Time sulfamethizole Allergy Unknown swelling, Verified 01/02/23 08:12 hives Review of Systems Review of Systems: CONSTITUTIONAL: Denies fever, chills, or sweats. EYES: Denies visual changes, redness, or discharge. ENT: Denies rhinorrhea, congestion, sore throat, or otalgia. CARDIOVASCULAR: Denies chest pain, palpitations, or edema. RESPIRATORY: Denies cough or dyspnea. GASTROINTESTINAL: Denies abdominal pain, nausea, vomiting, or diarrhea. GENITOURINARY: Denies dysuria or hematuria. SKIN: Denies rash or itching. MUSCULOSKELETAL: Denies back pain, joint pain, or myalgia. NEUROLOGIC: Reports dizziness PSYCHIATRIC: Denies anxiety or depression. [facility] Past Medical History Medical History History of lipoma History of MRSA infection Surgical History Surgical History History of laparoscopic cholecystectomy 02/01/20 History of tubal ligation Status post excision of lipoma Family History Family History Father Hypertension High cholesterol Mother High cholesterol Hypertension Social History Social History Smoking packs per day: 1 Smoking cigarettes per day: 20.0 Years smoked: 26 Smoking pack-years: 26.00 Smoking status: Former smoker Tobacco type: cigarettes Second hand tobacco smoke exposure: No Smoking end date: 12/29/20 Alcohol intake: never Substance use: never Substance use type: does not use Lack of Transportation: No Lack of Food: Never True Current Housing: I Have Housing Concerned About Future Housing: No Difficulty Paying Gas/Electric Bills: No Difficulty Paying for Meds: No Currently Unemployed: No Education: Trade/Vocational Certificate Difficulty w/ Childcare or Family Care: No Living arrangements: with family Occupation/Education: unemployed Gender identity (if verbalized by the patient): Female Spiritual care concerns: No Exam Narrative: GENERAL: Well-appearing, well-nourished, no physical limitations, and in no acute distress. HEAD: Normocephalic, atraumatic. EYES: Conjunctivae normal, PERRLA and EOMI. ENT: External ears normal, bilateral TMs normal bilaterally NECK: Supple. CHEST: Clear to auscultation. No respiratory distress. No wheezes rales or rhonchi. HEART: Regular rate and rhythm. No murmur heard. Normal peripheral pulses. SKIN: Warm, dry, no rash. No noted wounds NEURO: No focal deficits. Alert and oriented x3. MAEW. CN's II-XI intact bilaterally, normal gait PSYCH: Cooperative. Normal mood and affect. Course Vital Signs Vital signs: Vital Signs Temperature 36.4 C L 03/13/23 11:00 Pulse Rate 71 03/13/23 11:00 Respiratory Rate 18 03/13/23 11:00 Blood Pressure 148/76 H 03/13/23 11:00 Pulse Oximetry 96 03/13/23 11:00 Oxygen Delivery Room Air 03/13/23 11:00 Temperature 36.4 C L 03/13/23 11:00 Pulse Rate 68 03/13/23 12:13 Respiratory Rate 18 03/13/23 12:13 Blood Pressure 155/84 H 03/13/23 12:13 Pulse Oximetry 100 03/13/23 12:13 Oxygen Delivery Room Air 03/13/23 11:00 Medical Decision Making MDM Narrative Medical decision making narrative: 48-year-old female presented emergency room for evaluation of dizziness. Labs are unremarkable.
[2023-03-13 12:49] LABS: Basophils Percent Auto 0.4 % (0.2-1.2); Eosinophils Absolute Auto 0.1 K/mm3 (0-0.3); Eosinophils Percent Auto 1.4 % (0-4.4); Hemoglobin 12.6 g/dL (12.0-15.0); Immature Granulocyte Absolute 0.04 K/mm3 (0.00-0.031); Immature Granulocyte Percent A 0.4 % (0-0.5); Lymphocytes Absolute Auto 1.13 K/mm3 (0.9-3.2); Lymphocytes Percent Auto 12.3 % (18.3-44.2); Mean Corpuscular HGB Conc 32.3 g/dl (32-36); Mean Corpuscular Hemoglobin 28.9 pg (26-34); Mean Corpuscular Volume 89.4 fl (80-100); Mean Platelet Volume 11.5 fl (7.4-10.4); Monocytes Absolute Auto 0.4 K/mm3 (0.1-0.6); Monocytes Percent Auto 4.8 % (2.6-8.5); Neutrophils Absolute Auto 7.4 K/mm3 (1.3-6.7); Neutrophils Percent Auto 80.7 % (45.5-73.1); Platelet Count Result 215 k/mm3 (150-375); Red Blood Count 4.36 M/mm3 (4.2-5.4); Red Cell Distribution Width 12.8 % (11.5-14.5); White Blood Count 9.2 K/mm3 (4.5-10.0)
[2023-03-13] MEDS: SODIUM CHLORIDE 0.9% IV 1,000 ML 999 ML IV CONT (12:50)
[2023-03-13 12:54] LABS: Glucose Point of Care 145 mg/dl (65-105)
[2023-03-13 12:59] LABS: Alanine Aminotransferase 26 U/L (6-35); Albumin Level 4.8 g/dL (3.5-5.1); Alkaline Phosphatase 45 U/L (38-126); Anion Gap 7 mmol/L (8-16); Aspartate Amino Transferase 29 U/L (14-36); Bilirubin,Total 0.6 mg/dL (0.2-1.3); Blood Urea Nitrogen 18 mg/dL (7-17); Calcium 9.3 mg/dL (8.4-10.2); Carbon Dioxide 29 mmol/L (22-30); Chloride 101 mmol/L (98-107); Estimated Glomerular Filt Rate > 60; Glucose 161 mg/dL (65-110); INR 0.9; Lipase 99 U/L (23-300); Potassium 3.7 mmol/L (3.4-5.0); Prothrombin Time 12.8 Seconds (11.1-14.7); Sodium 137 mmol/L (137-145)
[2023-03-13 13:00] LABS: Partial Thromboplastin Time 29.4 SECONDS (22.3-36.8)
[2023-03-13 13:10] LABS: Troponin I < 0.012 ng/mL (0.000-0.034)
== END 2023-03-13 13:38 | disposition left against medical advice (07) ==
PROVIDERS: Emergency Medicine; Emergency Provider Nurse Practitioner Family; PCP Nurse Practitioner
DX: R42 Dizziness and giddiness (principal); I10 Essential (primary) hypertension; E03.9 Hypothyroidism, unspecified; E11.9 Type 2 diabetes mellitus without complications; Z86.14 Personal history of Methicillin resistant Staphylococcus aureus infection; Z87.891 Personal history of nicotine dependence; Z79.84 Long term (current) use of oral hypoglycemic drugs
CPT/HCPCS: 36415; 70450; 71046; 80053; 82948; 83690; 84443; 84484; 85025; 85610; 85730; 93005; 96360; 99284; J7030

== ENCOUNTER 2023-07-18 00:32 | Day surgery (SDC) | payer BC, SELFPAY ==
[2023-07-17 15:30] VITALS: BMI 38.6
--- NOTE | 2023-07-17 15:36 | PC.NURSE ---
Report to the Outpatient Waiting Room, entrance under the green pavilion located off [facility], at time 1100 on date 07/18/23. Planned Procedure Time: 1300. Time changes happen often and if your time is changed the preop area will call you the afternoon before. - You and your visitor will be asked to self-screen and do not enter if you have any COVID symptoms. - A mask is optional within the hospital at this time. Patients may have clear liquids (water, carbonated beverages, clear teas, apple juice) until 3 hours prior to surgery with a maximum of 20 ounces. - No food from midnight until time of surgery Take the following medications with a SIP of water the morning of surgery: ANTIBIOTIC, LEVOTHYROXINE DO NOT STOP ANY OF YOUR OTHER PRESCRIPTION MEDICATIONS PRIOR TO SURGERY ?EXCEPT THE FOLLOWING Medications to discontinue per physician: N/A Date to take last dose: N/A Please no make-up, nail maltese, hairspray, perfume, deodorant, or body powder the day of surgery. No jewelry (including any body piercings) or valuables the day of surgery, leave them at home. Please take a shower or bath the night before, or the morning of, surgery with an antibacterial soap. Wear comfortable, loose fitting clothing. - Jewelry must be removed prior to entering the operating room. Rings and piercings that are not removed may be cut off. - The hospital will not accept responsibility for valuables. - Please leave all valuables, including medications, at home the day of surgery. If you are going home after surgery, a licensed trencher driver must drive you home. - NO public transportation without another adult if you receive anesthesia. - We recommend that an adult stay with you for 24 hours following discharge. - We also recommend that you do not drive, make important decision, drink alcoholic beverages, or take any drugs that were not prescribed by your health care provider for at least 24 hours after your discharge time. Follow any additional instructions given to you from your surgeon. If you or anyone in your household have experienced Covid symptoms in the past week, please notify your surgeon or the nurse liaison at the phone number below for possible testing. Telephone instructions given to PT - NIRMAL PLASENCIA and asked if any additional questions and then verbalized understanding. Patient advised to call surgeon office or pre surgery nurse liaison [phone] if any additional questions.
--- NOTE | 2023-07-18 11:09 | WPDHPUPDATE1 ---
History and Physical Update Update Date/Time: 07/18/23 11:09 History and Physical has been reviewed, including an updated exam of the patient. There are NO changes in the patient's condition. Risks, benefits, and alternatives have been discussed and questions answered. Patient agrees to proceed with procedure.
--- NOTE | 2023-07-18 11:10 | WPDHPUPDATE1 ---
History and Physical Update Update Date/Time: 07/18/23 11:10 History and Physical has been reviewed, including an updated exam of the patient. There are NO changes in the patient's condition. Risks, benefits, and alternatives have been discussed and questions answered. Patient agrees to proceed with procedure.
[2023-07-18 11:13] VITALS: BP 145/79; PULSE 66; RESP 16; TEMP 36.2; O2SAT 100
[2023-07-18] MEDS: LACTATED RINGERS 1,000 ML 30 ML IV CONT ×2 (11:50→14:14)
[2023-07-18 12:14] LABS: Anion Gap 7 mmol/L (8-16); Blood Urea Nitrogen 20 mg/dL (7-17); Calcium 9.2 mg/dL (8.4-10.2); Carbon Dioxide 28 mmol/L (22-30); Chloride 103 mmol/L (98-107); Estimated CRCL calculation 102 ml/min; Estimated Glomerular Filt Rate > 60; Glucose 106 mg/dL (65-110); Sodium 138 mmol/L (137-145)
--- NOTE | 2023-07-18 12:18 | WPDANESEPPF ---
Anes - Initial Pre Proc Eval Procedure: Operation Date: 07/18/23 13:00 Proposed Procedures p Excision Infected Right Lateral Neck Sebaceous Cyst - Rudolph Huang MD Date/Time: 07/18/23 12:18 Surgeon: Rudolph Huang MD Pre Op Diagnosis: infected right lateral neck sebaceous cyst Patient Data Age: 48 Gender: F Height: 1.65 m Weight: 103 kg Last Vital Signs Temp 36.2 C L 07/18/23 11:13 Pulse 66 07/18/23 11:13 Resp 16 07/18/23 11:13 BP 145/79 H 07/18/23 11:13 Pulse Ox 100 07/18/23 11:13 O2 Del Method Room Air 07/18/23 11:13 Allergies Allergy/AdvReac Type Severity Reaction Status Date / Time sulfamethizole Allergy Unknown swelling, Verified 07/17/23 15:29 hives Home Medications Medication Instructions Recorded Confirmed Type levothyroxine 75 mcg tablet 75 mcg PO DAILY #30 tabs 05/15/23 07/17/23 Rx (Euthyrox) ferrous sulfate 324 mg (65 mg 324 mg PO BID #60 tabs 05/27/23 07/17/23 Rx iron) tablet,delayed release losartan 50 mg-hydrochlorothiazide 1 tablet PO DAILY #30 tabs 07/09/23 07/17/23 Rx 12.5 mg tablet metformin 500 mg tablet See Rx Instructions .Route 07/09/23 07/17/23 Rx .COMPLEX #30 tabs doxycycline hyclate 100 mg tablet 100 mg PO BID 10 days #20 tabs 07/16/23 07/17/23 Rx Laboratory Tests 07/18/23 11:56 Sodium 138 mmol/L (137-145) Potassium 4.0 mmol/L (3.4-5.0) Chloride 103 mmol/L (98-107) Carbon Dioxide 28 mmol/L (22-30) Anion Gap 7 L mmol/L (8-16) BUN 20 H mg/dL (7-17) Creatinine 0.70 mg/dL (0.7-1.0) Estim Creat Clear Calc 102 ml/min Estimated GFR > 60 (59 - ) Glucose 106 mg/dL (65-110) Calcium 9.2 mg/dL (8.4-10.2) Patient hx anesthesia problems: none Family hx anesthesia problems: none Results Review: All pre-operative results and documents have been reviewed as part of the pre-operative evaluation. FORMERLY [facility] Past Medical History Medical History Diabetes History of lipoma History of MRSA infection Hypertension Surgical History Surgical History History of laparoscopic cholecystectomy 02/01/20 History of tubal ligation Status post excision of lipoma Family History Family History Father Hypertension High cholesterol Mother High cholesterol Hypertension Other Diabetes mellitus Social History Social History Smoking packs per day: 1 Smoking cigarettes per day: 20.0 Years smoked: 20 Smoking pack-years: 20.00 Smoking status: Former smoker Tobacco type: cigarettes Second hand tobacco smoke exposure: No Smoking end date: 07/01/21 Alcohol intake: never Substance use: never Substance use type: does not use Lack of Transportation: No Lack of Food: Never True Current Housing: I Have Housing Concerned About Future Housing: No Difficulty Paying Gas/Electric Bills: No Difficulty Paying for Meds: No Currently Unemployed: No Education: Trade/Vocational Certificate Difficulty w/ Childcare or Family Care: No Living arrangements: with family Occupation/Education: occupation 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
[2023-07-18] MEDS: ceFAZolin 2 GM/D5W 50 ML 2 GM/50 ML BAG IVPB (13:14)
[2023-07-18] MEDS: LIDO 1%/EPINEPHRINE 1:100,000 50 ML VIAL 10 ML INFILTRATE (13:45)
[2023-07-18] MEDS: BUPivacaine HCL 0.5% 10 ML AMP INFILTRATE (13:45)
[2023-07-18 14:14] VITALS: BP 135/84; PULSE 69; RESP 20; TEMP 36.3; O2SAT 100
[2023-07-18 14:25] VITALS: BP 119/68; PULSE 59; RESP 16; O2SAT 96
[2023-07-18 14:37] VITALS: BP 133/72; PULSE 72; RESP 20; O2SAT 99
[2023-07-18 14:40] VITALS: BP 129/68; PULSE 61; RESP 18
--- NOTE | 2023-07-18 14:54 | PM.OP ---
Procedure Note - Brief Procedure Note - Brief Date of procedure: 07/18/23 infected right lateral neck sebaceous cyst Post-op diagnosis: Same Procedure performed: Excision right lateral neck infected sebaceous cyst with 4cm intermediate layered wound closure Surgeon: Rudolph Huang MD Animal Cytologist: [place] MAYO Anesthesia: GETRufus Estimated blood loss (mL): 10 Drains: No Packing: Yes (Quarter-inch iodoform gauze) Pathology: Yes (Cyst wall to pathology) Complications: No immediate complications Condition: Stable Disposition: PACU
[2023-07-18 15:10] VITALS: BP 129/70; PULSE 60; RESP 18
--- NOTE | 2023-07-18 16:50 | W.PM.PROC2 ---
Procedure Note - Detailed Date of Procedure 07/18/23 Pre-op Diagnosis infected right lateral neck sebaceous cyst Post-op Diagnosis Same Procedure Performed Excision right lateral infected sebaceous cyst with 4cm intermediate layered wound closure. Surgeon Rudolph Huang MD Sales And Training Specialist [place] Hines, [facility] Anesthesia General Indications Patient is a 48-year-old female who is a longstanding non-insulin diabetic it for the past month has noticed enlargement of a longstanding right lateral neck sebaceous cyst. No the past couple of days has become much more painful and red suggestive of infection of the cyst. She was seen in the office yesterday and found to have infected sebaceous cyst which was not spontaneously draining. She presents now for excision of the infected cyst in the operating room under an anesthetic. Findings The cyst was inflamed and filled with sebaceous and keratinous material. Overlying skin was inflamed but viable. Description of Procedure After informed consent was obtained patient brought to the operating room she was placed under general endotracheal anesthesia. She was then turned onto the left lateral decubitus position on operating table taking great care to make sure all the pressure points well padded and she was securely strapped to the table. A time-out was then performed correctly identifying the patient as well as procedure performed and verified she was given perioperative IV antibiotics. The area the right lateral neck region was then prepped and draped usual sterile fashion. I then made a oblique small elliptical skin incision overlying the cyst wall with a scalpel and then very carefully with a combination of sharp scalpel and sharp iris scissor dissection shelled out the wall to the infected cyst. I dissected the subcutaneous tissues until I felt that I could use electrocautery to completely excise out the remaining portion of the cyst. The cyst measured approximate 2.5cm in diameter. The cyst and the contents and attached overlying ellipse of skin was sent to pathology for examination. I then irrigated out the incision sterile saline solution hemostasis was good. I then anesthetized the area utilizing 1% lidocaine mixed with 0.5% Marcaine with some epinephrine. Due to the cellulitis I loosely closed the wound. A few interrupted 3-0 Vicryl sutures were placed in the subcutaneous tissues to partially close some of the space. I then utilized interrupted 4-0 nylon sutures loosely approximate about 80% of the skin edges. The center portion was left open to allow packing of quarter-inch iodoform gauze. The final length of the intermediate layered wound closure was 4 cm. There was cleaned and then antibiotic ointment applied to the sutures. It was then covered with 4x4 gauze and a Tegaderm. The patient tolerated the procedure well no complications. All sponges, needles, and instrument counts were correct at the end procedure. EBL was _10__cc. The patient was awakened and taken to recovery in stable and satisfactory condition. Implants None Estimated Blood Loss 10 Drains No Packing Yes ( quarter-inch iodoform gauze) Pathology Yes ( sebaceous cyst and contents to pathology) Complications No immediate complications Condition Stable Disposition PACU [facility] Billing Surgery - Charge Forward: Surgery Billing
== END 2023-07-18 15:15 | disposition home or self-care (01) ==
PROVIDERS: Anesthesiology; PCP Nurse Practitioner; Visit Provider Surgery
PROC: (CPT 11423; principal; 2023-07-18 13:00)
DX: L72.0 Epidermal cyst (principal); E11.9 Type 2 diabetes mellitus without complications; I10 Essential (primary) hypertension; Z87.891 Personal history of nicotine dependence; E66.9 Obesity, unspecified; Z68.37 Body mass index [BMI] 37.0-37.9, adult; Z79.84 Long term (current) use of oral hypoglycemic drugs
CPT/HCPCS: 11423; 12042; 36415; 80048; 88305; A9270; J0690; J1100; J1596; J2250; J2371; J2405; J2704; J2710; J3010; J7120

== ENCOUNTER 2025-01-09 11:58 | Emergency (ER) | payer BC, SELFPAY ==
[2025-01-09 12:02] VITALS: BP 128/77; PULSE 80; RESP 16; TEMP 36.1; O2SAT 100
--- NOTE | 2025-01-09 12:02 | ED_ITS ---
HPI - Allergic Reaction General Chief complaint: Upper Respiratory Infection Stated complaint: Throat Swelling Time Seen by Provider: 01/09/25 12:05 Source: patient Mode of arrival: ambulatory Limitations: no limitations History of Present Illness HPI narrative: Cecilia is a 49-year-old male female patient presenting to the clinic today for possible allergic reaction. She reports she was standing down some chairs with mold on them and she noticed that she had some tightness in her throat. Started to feel anxious and symptoms felt worse. Denies any difficulty swallowing, cough, tongue swelling, chest pain, or shortness of breath. She took Benadryl 25 mg prior to arrival. Has had this happen before and the provider told her her throat was swelling shut and she got a steroid shot. Related Data Allergies Allergy/AdvReac Type Severity Reaction Status Date / Time Sulfa (Sulfonamide Allergy Intermediate Rash Verified 01/09/25 12:07 Antibiotics) Review of Systems Review of Systems: Pertinent positives per HPI. Patient denies any fever, chills, rash, headache, visual changes, dizziness, cough, shortness of breath, chest pain, palpitations, nausea, vomiting, diarrhea, constipation, abdominal pain, or any urinary issues. [facility] Past Medical History Medical History Hypertension Diabetes History of MRSA infection History of lipoma Surgical History Surgical History Hx of excision of mass Excision right lateral infected sebaceous cyst with 4cm intermediate layered wound closure 07/18/23 SAW History of laparoscopic cholecystectomy 02/01/20 History of tubal ligation Status post excision of lipoma Family History Family History Father Hypertension High cholesterol Mother High cholesterol Hypertension Other Diabetes mellitus Social History Social History Smoking packs per day: 1 Smoking cigarettes per day: 20.0 Years smoked: 20 Smoking pack-years: 20.00 Smoking status: Former smoker Tobacco type: cigarettes Second hand tobacco smoke exposure: No Smoking end date: 07/01/21 Alcohol intake: never Substance use: never Substance use type: does not use Lack of Transportation: No Lack of Food: Never True Current Housing: I Have Housing Concerned About Future Housing: No Difficulty Paying Gas/Electric Bills: No Difficulty Paying for Meds: No Currently Unemployed: No Education: Trade/Vocational Certificate Difficulty w/ Childcare or Family Care: No Living arrangements: with family Occupation/Education: occupation 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 There is no relevant family history pertinent to the patient complaint. Exam Narrative: General: Well-developed, well nourished, in no apparent distress Head: Normocephalic, atraumatic Eyes: Pupils equally round and reactive to light bilaterally, EOM intact, sclera and conjunctive clear, no discharge, lids normal Ears: TMs intact and clear, ear canals clear, no drainage, grossly hearing normal. Nose: Nares patent, no discharge, no inflammation, no sinus tenderness. Mouth: Oral pharynx without lesions or masses, good dentition, MMM. Neck: Supple, trachea midline, no enlargement of anterior or posterior cervical nodes, no thyroid masses or goiter palpable. Cardio: Regular rate and rhythm, s1 and s2 normal, no murmur appreciated. Resp: Clear to auscultation bilaterally, no rhonchi, rales, wheezing or rubs Course Course Emergency Course: Portions of this record may have been created with voice recognition software. Level of Care: Express Care Visit Vital Signs Vital signs: Vital Signs Temperature 36.1 C L 01/09/25 12:02 Pulse Rate 80 01/09/25 12:02 Respiratory Rate 16 01/09/25 12:02 Blood Pressure 128/77 01/09/25 12:02 Pulse Oximetry 100 01/09/25 12:02 Oxygen Delivery Room Air 01/09/25 12:02 Temperature 36.1 C L 01/09/25 12:02 Pulse Rate 80 01/09/25 12:02 Respiratory Rate 16 01/09/25 12:02 Blood Pressure 128/77 01/09/25 12:02 Pulse Oximetry 100 01/09/25 12:02 Oxygen Delivery Room Air 01/09/25 12:02 Vital signs reviewed MDM - Allergic Reaction MDM Narrative Medical decision making narrative: At the time of visit patient is resting comfortably on the exam table. Patient appears to be nontoxic. Patient feels that her throat is tightening/swelling. No obvious tongue or throat swelling on exam. Ordered Solu-Medrol 125mg. Patient took 25 mg of Benadryl prior to arrival. Her airway is patent- Mallampati score 2- uvula midline. No respiratory distress. VS stable- Spo2 100% on room air. Plan: Patient is here for throat tightness/possible allergic reaction. Solu- Medrol 125 mg IM ordered in the clinic today however once medication was drawn up and patient saw the needle she declined the shot. States that the Benadryl is helping her symptoms. Will send in prescription for a 10 day course of prednisone, Pepcid, and Zyrtec. Supportive measures were discussed with the patient and they voiced understanding discharge instructions and agrees to treatment plan. Return precautions reviewed Differential Diagnosis Differential diagnosis: Likely anaphylaxis, allergic reaction, angioedema, contact dermatitis, adverse reaction to drug, viral enanthem and urticaria Discharge Plan Discharge Clinical Impression: Throat tightness Allergic reaction Qualifiers: Encounter type: initial encounter Qualified Code(s): T78.40XA - Allergy, unspecified, initial encounter Patient Disposition: Home Condition: Stable Instructions: Antibiotic Form, General Allergic Reaction (ED) Additional Instructions: Patient declined steroid shot in the clinic today Take prednisone as directed Go home and rest today Increase fluids and stay well hydrated Take Pepcid and Zyrtec as directed. May take Benadryl 25-50mg every 6 hours as needed for itching/swelling/rash Follow up with your PCP in 2-3 days if symptoms persist or sooner if they worsen Go to the Emergency Room if symptoms worsen- fever, rash spreading with treatment, shortness of breath, difficulty breathing, lip swelling, tongue swelling, drooling, or chest pain Patient Language: [place] Prescriptions: New prednisone 10 mg tablet 10 mg PO DAILY Qty: 30 0RF Rx Instructions: 60mg po daily on day 1, 40mg po daily on days 2-4, 30mg po daily on days 5-6, 20mg po daily on days 7-8, 10mg po daily on days 9-10 famotidine [Pepcid] 40 mg tablet 40 mg PO DAILY 10 Days Qty: 10 0RF Zyrtec 10 mg capsule 10 mg PO DAILY 30 Days Qty: 30 0RF No Action losartan-hydrochlorothiazide 50-12.5 mg tablet 1 tablet PO DAILY Qty: 90 3RF gentamicin 0.3 % drops 1 drp LEFT EYE Q4H Qty: 5 0RF Rx Instructions: Use for six days metformin 500 mg tablet See Rx Instructions .ROUTE .COMPLEX Qty: 30 6RF Dose Instruction: Take 1 tablet by mouth twice daily Rx Instructions: Take 1 tablet by mouth daily levothyroxine [Euthyrox] 75 mcg tablet 75 mcg PO DAILY Qty: 30 5RF ferrous sulfate 324 mg (65 mg iron) tablet,delayed release (DR/EC) See Rx Instructions .ROUTE .COMPLEX Qty: 60 4RF Dose Instruction: Take 1 tablet by mouth twice daily Rx Instructions: Take 1 tablet by mouth twice daily semaglutide 2 mg/dose (8 mg/3 mL) pen injector 2 mg subcut WEEKLY Qty: 3 2RF Follow-up/Referrals: Sean Pope DO [Primary Care Provider] - Stand Alone Forms: Work/School Release IP Time of Disposition: 12:17 Quality NIHSS Nursing Documentation ED NIHSS nursing documentation: reviewed/agree
--- NOTE | 2025-01-09 12:24 | PC.NURSE ---
Pt refused medication after it was drawn up and ready to inject. Pt states that she is afraid to receive large injection. She states the Benadryl is working and she feels better. She asks for oral steroid prescription stating she is ready for d/c. No resp distress at this time. Provider is aware of pt refusal of injection.
== END 2025-01-09 12:26 | disposition home or self-care (01) ==
PROVIDERS: Emergency Provider Nurse Practitioner Family; PCP Internal Medicine
DX: R22.1 Localized swelling, mass and lump, neck (principal); T78.40XA Allergy, unspecified, initial encounter; Z87.891 Personal history of nicotine dependence; I10 Essential (primary) hypertension; Z79.84 Long term (current) use of oral hypoglycemic drugs; E11.9 Type 2 diabetes mellitus without complications; Z86.14 Personal history of Methicillin resistant Staphylococcus aureus infection
CPT/HCPCS: 99213; G0463

== ENCOUNTER 2025-05-28 13:22 | Emergency (ER) | payer BC, SELFPAY ==
[2025-05-28 13:31] VITALS: BP 149/74; PULSE 65; RESP 16; TEMP 36.3; O2SAT 100
--- NOTE | 2025-05-28 14:02 | ED.UPPEXIN ---
HPI - Extremity Injury (Upper) General Chief Complaint: Extremity Injury, Upper Stated Complaint: nails went into finger on left hand Time Seen by Provider: 05/28/25 13:50 Source: patient, RN notes reviewed and old records reviewed Mode of arrival: ambulatory Limitations: no limitations History of Present Illness HPI narrative: 50 year old female presents to [facility] with complaints of puncture wound to the pad and side of left middle finger about 1/2 hour ago when she was moving some furniture. Patient has some swelling and tenderness to the left distal middle left finger where puncture gauthier noted. Patient reports concern that she needs a tetanus shot ithas been greater than 10 years. complaint: injury to: left and finger Onset (ago): hour(s) (30 minutes prior to arrival) Other injuries: none Handedness: right Place: home Related Data Allergies Allergy/AdvReac Type Severity Reaction Status Date / Time Sulfa (Sulfonamide Allergy Intermediate Rash Verified 05/28/25 14:14 Antibiotics) Review of Systems Review of Systems: CONSTITUTIONAL: Denies fever, chills, or sweats. EYES: Denies visual changes, redness, or discharge. ENT: Denies rhinorrhea, congestion, sore throat, or otalgia. CARDIOVASCULAR: Denies chest pain, palpitations, or edema. RESPIRATORY: Denies cough or dyspnea. GASTROINTESTINAL: Denies abdominal pain, nausea, vomiting, or diarrhea. GENITOURINARY: Denies dysuria or hematuria. SKIN: Denies rash or itching.puncture gauthier x2 to distal left middle finger with some swelling mild tenderness voiced MUSCULOSKELETAL: Denies back pain, joint pain, or myalgia. NEUROLOGIC: Denies headache, numbness, or weakness. PSYCHIATRIC: Denies anxiety or depression. All systems reviewed & are unremarkable except as noted in HPI and below [facility] Past Medical History Medical History Hypertension Diabetes History of MRSA infection History of lipoma Surgical History Surgical History Hx of excision of mass Excision right lateral infected sebaceous cyst with 4cm intermediate layered wound closure 07/18/23 SAW History of laparoscopic cholecystectomy 02/01/20 History of tubal ligation Status post excision of lipoma Family History Family History Father Hypertension High cholesterol Mother High cholesterol Hypertension Other Diabetes mellitus Social History Social History Smoking packs per day: 1 Smoking cigarettes per day: 20.0 Years smoked: 20 Smoking pack-years: 20.00 Smoking status: Former smoker Tobacco type: cigarettes Second hand tobacco smoke exposure: No Smoking end date: 07/01/21 Alcohol intake: never Substance use: never Substance use type: does not use Lack of Transportation: No Lack of Food: Never True Current Housing: I Have Housing Concerned About Future Housing: No Difficulty Paying Gas/Electric Bills: No Difficulty Paying for Meds: No Currently Unemployed: No Education: Trade/Vocational Certificate Difficulty w/ Childcare or Family Care: No Living arrangements: with family Occupation/Education: occupation 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 There is no relevant family history pertinent to the presenting complaint Exam Narrative: GENERAL: Well-appearing, well-nourished, and in no acute distress. HEAD: Normocephalic, atraumatic. EYES: PERRLA and EOMI. ENT: Nares clear, no rhinorrhea or epistaxis. Mucous membranes moist. NECK: Supple.no lymphadenopathy CHEST: Clear to auscultation. No respiratory distress.SAO2 100% on room air HEART: Regular rate and rhythm. No murmur heard. Normal peripheral pulses. ABDOMEN: Soft, nontender, nondistended, normal active bowel sounds. EXTREMITIES: Normal range of motion. No edema. SKIN: Warm, dry, no rash.Puncture gauthier X2 to distal middle left finger chaudhry side with some swelling and mild tenderness. NEURO: No focal deficits. Alert and oriented x3. Course Course Emergency Course: Patient is aware of diagnosis, understands and agrees to treatment plan.? Anticipatory guidance given.? Patient agrees to follow-up as directed and is aware of reasons to seek care at the emergency department. Portions of this record may have been created with voice recognition software Level of Care: Express Care Visit Vital Signs Vital signs: Vital Signs Temperature 36.3 C L 05/28/25 13:31 Pulse Rate 65 05/28/25 13:31 Respiratory Rate 16 05/28/25 13:31 Blood Pressure 149/74 H 05/28/25 13:31 Pulse Oximetry 100 05/28/25 13:31 Oxygen Delivery Room Air 05/28/25 13:31 Temperature 36.3 C L 05/28/25 13:31 Pulse Rate 65 05/28/25 13:31 Respiratory Rate 16 05/28/25 13:31 Blood Pressure 149/74 H 05/28/25 13:31 Pulse Oximetry 100 05/28/25 13:31 Oxygen Delivery Room Air 05/28/25 13:31 Reviewed MDM - Extremity Injury (Upper) MDM Narrative Medical decision making narrative: Patient received tetanus update while in clinic with no reaction noted. Differential Diagnosis Differential diagnosis: Likely other (puncture wounds to left middle finger, swelling left middle distal finger, tetanus update) Medical Records Attestation: I reviewed the patient's medical records. Lab Data Attestation: I reviewed the patient's lab results. Critical Care Time Critical Care Time Critical Care Time: No Discharge Plan Discharge Clinical Impression: Puncture wound of left middle finger Patient Disposition: Home Condition: Stable Instructions: Antibiotic Form, Puncture Wound (ED) Additional Instructions: soak left middle finger in liquid dial soap twice daily apply bacitracin ointment and band-aide watch for any increasing infection--redness, swelling, drainage Tylenol or Ibuprofen for any fever or pain follow up with PCP in 7-10 days for a wound check recheck if develop fever, chills, increasing symptom Go to the ER if your symptoms become worse of if ANY new symptoms develop Antibiotic as ordered complete all doses. If your symptoms persist, change or worsen significantly before you can contact your personal physician then please, without delay, go to the emergency department for further evaluation. Follow-up with PCP in 7-10 days or sooner if needed Follow up with PCP soon in regards to your blood pressure which is elevated above threshold for referral. Blood pressure above 120/80 may indicate pre-hypertension. blood 49/74 Patient Language: [place] Prescriptions: New cephalexin 500 mg capsule 500 mg PO Q8H Qty: 21 0RF No Action metformin 500 mg tablet See Rx Instructions .ROUTE .COMPLEX Qty: 30 6RF Dose Instruction: Take 1 tablet by mouth twice daily Rx Instructions: Take 1 tablet by mouth daily ferrous sulfate 324 mg (65 mg iron) tablet,delayed release (DR/EC) See Rx Instructions .ROUTE .COMPLEX Qty: 60 4RF Dose Instruction: Take 1 tablet by mouth twice daily Rx Instructions: Take 1 tablet by mouth twice daily levothyroxine [Euthyrox] 75 mcg tablet 75 mcg PO DAILY Qty: 30 5RF losartan-hydrochlorothiazide 50-12.5 mg tablet 1 tablet PO DAILY Qty: 90 3RF gentamicin 0.3 % drops 1 drp LEFT EYE Q4H Qty: 5 0RF Rx Instructions: Use for 5-6 days Ozempic 2 mg/dose (8 mg/3 mL) pen injector See Rx Instructions .ROUTE .COMPLEX Qty: 3 3RF Dose Instruction: INJECT 2MG SUBCUTANEOUSLY ONCE A WEEK Rx Instructions: INJECT 2MG SUBCUTANEOUSLY ONCE A WEEK Follow-up/Referrals: Sean Pope DO [Primary Care Provider, Internal Medicine] Time of Disposition: 14:24 Quality [place] Coma Scale Eyes: Open Verbal: Oriented and Alert Motor: Follows Commands [place] Coma Total Score: 15
[2025-05-28] MEDS: TETANUS,DIPHTHERIA,AC PERTUSSIS ADULT (0.5 ML) BOOSTRIX IM (14:10)
== END 2025-05-28 14:31 | disposition home or self-care (01) ==
PROVIDERS: Emergency Provider Registered Nurse; PCP Internal Medicine
DX: S61.233A Puncture wound without foreign body of left middle finger without damage to nail, initial encounter (principal); W45.0XXA Nail entering through skin, initial encounter; Z23 Encounter for immunization; I10 Essential (primary) hypertension; E11.9 Type 2 diabetes mellitus without complications; Z86.14 Personal history of Methicillin resistant Staphylococcus aureus infection; Z87.891 Personal history of nicotine dependence
CPT/HCPCS: 90471; 90715; 99213; G0463